=== PATIENT | female | born 1965 | race American Indian/Alaskan Native ===

== ENCOUNTER 2017-07-01 08:17 | Emergency (ER) | payer MEDICAID ==
[2017-07-01 08:37] VITALS: BMI 28.3
[2017-07-01 08:39] VITALS: TEMP 97.7
--- NOTE | 2017-07-01 09:03 | ED PDOC ---
Arrival/HPI - General Chief Complaint: Dizziness/Lightheaded Time Seen by Provider: 07/01/17 08:43 Historian: Patient - History of Present Illness Narrative History of Present Illness (Text): 07/01/17 08:56 A 51 year old female, whose past medical history includes hypertension, presents to the emergency department complaining of dizzness and vomiting this morning. Patient reports never having this before and is currently still dizzy now. No other complaints mentioned. Patient denies any past medical history of heart disease. No PMD Time/Duration: Other (this morning) Symptom Onset: Sudden Symptom Course: Unchanged Past Medical History - Provider Review Nursing Documentation Reviewed: Yes - Cardiac Hx Hypertension: Yes - Pulmonary Hx Respiratory Disorders: No - Neurological Hx Neurological Disorder: No - HEENT Hx HEENT Disorder: No - Renal Hx Renal Disorder: No - Endocrine/Metabolic Hx Hypothyroidism: Yes - Hematological/Oncological Hx Blood Disorders: No - Integumentary Hx Dermatological Disorder: No - Musculoskeletal/Rheumatological Hx Musculoskeletal Disorders: No - Gastrointestinal Hx Gastrointestinal Disorders: No - Genitourinary/Gynecological Hx Genitourinary Disorders: No - Psychiatric Hx Psychophysiologic Disorder: No Hx Substance Use: No - Surgical History Hx Thyroidectomy: Yes Hx Tubal Ligation: Yes - Anesthesia Hx Anesthesia: Yes Hx Anesthesia Reactions: No Hx Malignant Hyperthermia: No Family/Social History - Physician Review Nursing Documentation Reviewed: Yes Family/Social History: No Known Family HX Smoking Status: Never Smoked Hx Alcohol Use: No Hx Substance Use: No Allergies/Home Meds Allergies/Adverse Reactions: Allergies No Known Allergies Allergy (Verified 07/01/17 08:37) Home Medications: Home Meds Medication Instructions Recorded Confirmed Hydrochlorothiazide [Microzide] 25 mg PO DAILY 07/01/17 07/01/17 Levothyroxine [Synthroid] 50 mcg PO DAILY 07/01/17 07/01/17 amLODIPine [Norvasc] 10 mg PO DAILY 07/01/17 07/01/17 Review of Systems - Review of Systems Constitutional: Normal Eyes: Normal ENT: Normal Respiratory: Normal Cardiovascular: Normal Gastrointestinal: Vomiting Genitourinary Female: Normal Musculoskeletal: Normal Skin: Normal Neurological: Dizziness Endocrine: Normal Hemo/Lymphatic: Normal Psychiatric: Normal Physical Exam Vital Signs Reviewed: Yes Vital Signs Temp Pulse Resp BP Pulse Ox 07/01/17 08:38 97.7 F 71 16 133/83 98 Temperature: Afebrile Blood Pressure: Normal Pulse: Regular Respiratory Rate: Normal Appearance: Positive for: Well-Appearing (well-hydrated) Pain Distress: None Mental Status: Positive for: Alert and Oriented X 3 - Systems Exam Respiratory/Chest: Present: Clear to Auscultation, Good Air Exchange. No: Respiratory Distress, Accessory Muscle Use Cardiovascular: Present: Regular Rate and Rhythm, Normal S1, S2. No: Murmurs Abdomen: Present: Normal Bowel Sounds. No: Tenderness, Distention, Peritoneal Signs Neurological: Present: GCS=15, CN II-XII Intact, Speech Normal, Other (no neurological deficits; no nystagmus) Skin: Present: Warm, Dry, Normal Color. No: Rashes Medical Decision Making ED Course and Treatment: 07/01/17 08:58 Impression: 51 year old female with dizziness and vomiting. No acute findings on physical examination. Plan: -- Head CT -- Labs -- Antivert -- Reassess and disposition Progress Notes: 07/01/2017 09:[address] IMPRESSION: No acute finding. Dictator: Krish Baires MD - Lab Interpretations Lab Results: 07/01/17 09:40 07/01/17 09:40 Lab Results 07/01/17 09:40: WBC 6.3, RBC 4.72, Hgb 13.1, Hct 39.5, MCV 83.7, MCH 27.8, MCHC 33.2, RDW 12.8, Plt Count 227, MPV 11.3 H, Gran % 60.4, Lymph % (Auto) 32.1, [place] % (Auto) 5.9, Eos % (Auto) 1.3 L, Baso % (Auto) 0.3, Gran # 3.82, Lymph # 2.0, [place] # 0.4, Eos # 0.1, Baso # 0.02 07/01/17 09:40: Sodium 140, Potassium 3.1 L, Chloride 98, Carbon Dioxide 29, Anion Gap 16, BUN 14, Creatinine 0.6 L, Est GFR ( Amer) > 60, Est GFR ( Non-Af Amer) > 60, Random Glucose 119 H, Calcium 10.4, Total Bilirubin 0.8, AST 35, ALT 30, Alkaline Phosphatase 83, Total Protein 9.0 H, Albumin 4.5, Globulin 4.5, Albumin/Globulin Ratio 1.0 L I have reviewed the lab results: Yes - RAD Interpretation Radiology Orders: 07/01/17 08:59 HEAD W/O CONTRAST [CT] Stat - Medication Orders Current Medication Orders: Discontinued Medications Meclizine HCl (Antivert) 25 mg PO STAT STA Stop: 07/01/17 09:01 Last Admin: 07/01/17 09:28 Dose: 25 mg Potassium Chloride (K-Dur 20 Meq Er Tab) 20 meq PO STAT STA Stop: 07/01/17 10:21 Disposition/Present on Arrival - Present on Arrival Any Indicators Present on Arrival: No History of DVT/PE: No History of Uncontrolled Diabetes: No Urinary Catheter: No History of Decub. Ulcer: No History Surgical Site Infection Following: None - Disposition Have Diagnosis and Disposition been Completed?: Yes Diagnosis: Vertigo Disposition: HOME/ ROUTINE Disposition Time: 10:30 Patient Plan: Discharge Condition: STABLE Prescriptions: Meclizine HCl 25 mg PO TID PRN #15 tab-cap PRN Reason: Dizziness Potassium Chloride [K-Dur 20] 20 meq PO DAILY #30 tab Referrals: Actual Experience Brit Lemons, [Primary Care Provider] - Follow up with primary Forms: [employer] ([place]an)
--- NOTE | 2017-07-01 09:31 | CT ---
PROCEDURE: CT HEAD WITHOUT CONTRAST. HISTORY: vertigo COMPARISON: None available. TECHNIQUE: Axial computed tomography images were obtained through the head/brain without intravenous contrast. Radiation dose: Total exam DLP = 778 mGy-cm. This CT exam was performed using one or more of the following dose reduction techniques: Automated exposure control, adjustment of the mA and/or kV according to patient size, and/or use of iterative reconstruction technique. FINDINGS: HEMORRHAGE: No intracranial hemorrhage. BRAIN: No mass effect or edema. No atrophy or chronic microvascular ischemic changes. VENTRICLES: Unremarkable. No hydrocephalus. CALVARIUM: Unremarkable. PARANASAL SINUSES: Unremarkable as visualized. No significant inflammatory changes. MASTOID AIR CELLS: Unremarkable as visualized. No inflammatory changes. OTHER FINDINGS: None. IMPRESSION: No acute finding
[2017-07-01 10:01] LABS: BASO # 0.02 K/mm3 (0.0-2.0); BASO % 0.3 % (0.0-3.0); EOS # 0.1 (0.0-0.7); EOS % 1.3 % (1.5-5.0); GRAN # 3.82 (1.4-6.5); GRAN % 60.4 % (50.0-68.0); HEMOGLOBIN 13.1 g/dL (12.0-16.0); LYMPH % 32.1 % (22.0-35.0); MEAN CELL VOLUME 83.7 fl (80.0-105.0); MEAN CORPUSCULAR HEMOGLOBIN 27.8 pg (25.0-35.0); MEAN CORPUSCULAR HGB CONC 33.2 g/dl (31.0-37.0); MEAN PLATELET VOLUME 11.3 fl (7.0-11.0); MONO # 0.4 (0.1-0.6); MONO % 5.9 % (1.0-6.0); RBC 4.72 10^6/uL (3.5-6.1); RED CELL DISTRIBUTION WIDTH 12.8 % (11.5-14.5); WHITE BLOOD COUNT 6.3 10^3/ul (4.5-11.0)
[2017-07-01 10:12] LABS: ALBUMIN 4.5 g/dL (3.0-4.8); ALT/SGPT 30 U/L (7-56); AST/SGOT 35 U/L (14-36); BLOOD UREA NITROGEN 14 mg/dL (7-21); CALCIUM 10.4 mg/dL (8.4-10.5); GFR AFRICAN-AMERICAN > 60; GFR NON-AFRICAN AMERICAN > 60
[2017-07-01] MEDS ORDERED: Potassium Chloride 20 mEq ER Tab PO STA (10:20)
[2017-07-01 10:32] VITALS: BP 116/71; PULSE 60; RESP 18; O2SAT 99
== END 2017-07-01 11:03 | disposition home or self-care (01) ==
LOC: ED 08:17
DX: R42 Dizziness and giddiness (principal); I10 Essential (primary) hypertension